=== PATIENT | female | born 1985 | race American Indian/Alaskan Native ===

== ENCOUNTER 2022-01-05 12:53 | Inpatient (IN) | payer SELFPAY ==
[2022-01-05] MEDS ORDERED: HALOPERIDOL LACTATE 5 MG/1 ML INJ IM PRN (13:34)
[2022-01-05] MEDS ORDERED: LORazepam 2 MG/ML VIAL IM PRN (13:34)
[2022-01-05] MEDS ORDERED: diphenhydrAMINE 50 MG/ML VIAL IM STA (13:53)
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
[2022-01-05 14:29] LABS: Hematocrit 39.1 % (30.3-42.9); Hemoglobin 12.7 gm/dl (10.1-14.3); Mean Corpuscular HGB Conc 33 % (30-34); Mean Corpuscular Volume 87 fl (79-97); Platelet Count 227 K/mm3 (140-440); Red Blood Count 4.48 M/mm3 (3.65-5.03)
[2022-01-05] MEDS ORDERED: VANCOMYCIN/NS 1 GM/250 ML 1 GM/250 ML BAG IV ONE (14:37)
[2022-01-05] MEDS ORDERED: cefTRIAXone/NS 2 GM/100 ML 2 GM/100 ML BAG IV ONE (14:37)
[2022-01-05] MEDS ORDERED: dexAMETHasone 20 MG/5 ML VIAL IV ONE (14:37)
[2022-01-05 14:42] LABS: Alanine Aminotransferase 15 units/L (7-56); Albumin 5.1 g/dL (3.9-5); BUN/Creatinine Ratio 23; Blood Urea Nitrogen 21 mg/dL (7-17); Calcium 9.8 mg/dL (8.4-10.2); Hemolysis Index 10
[2022-01-05] MEDS ORDERED: SODIUM CHLORIDE 0.9% 1000 ML 3,000 ML IV ONE (14:43)
[2022-01-05 14:48] LABS: INR 0.99 (0.87-1.13)
--- NOTE | 2022-01-05 14:54 | XRay Report ---
XR chest 1V ap INDICATION / CLINICAL INFORMATION: Acute psychosis and tachycarida, med clearance COMPARISON: None available. FINDINGS: SUPPORT DEVICES: None. HEART / MEDIASTINUM: No significant abnormality. LUNGS / PLEURA: Lungs are clear. Costophrenic sulci are sharp. No pneumothorax. ADDITIONAL FINDINGS: No significant additional findings. IMPRESSION: 1. No acute findings. Signer Name: Georges Alvarenga MD Signed: 01/05/2022 2:50 PM Workstation Name: [id number]
[2022-01-05] MEDS ORDERED: ACYCLOVIR 800 MG in SODIUM CHLORIDE 0.9% 100 ML IV ONE (15:00)
[2022-01-05] MEDS ORDERED: POTASSIUM IODIDE/IODINE (LUGOLS) 5% ORAL LIQD 5 ML PO STA ×2 (15:28→15:43)
[2022-01-05] MEDS ORDERED: ACETAMINOPHEN 500 MG TAB PO ONE (15:31)
[2022-01-05] MEDS ORDERED: PROPRANOLOL 40 MG TAB PO STA (15:34)
[2022-01-05] MEDS ORDERED: methIMAzole 5 MG TAB PO STA (15:34)
[2022-01-05] MEDS ORDERED: LIDOCAINE (1%) 10 MG/1 ML VIAL 20 ML MDV INFILTRATI ONE (15:42)
[2022-01-05 15:59] LABS: Basophils % (Auto) 0.2 % (0.0-1.8); Lymphocytes # (Auto) 1.2 K/mm3 (1.2-5.4); Lymphocytes % (Auto) 11.2 % (13.4-35.0); Monocytes % (Auto) 9.1 % (0.0-7.3)
--- NOTE | 2022-01-05 16:02 | Cat Scan Report ---
NONENHANCED CT SCAN OF THE HEAD: INDICATION / CLINICAL INFORMATION: 36 years Female; Medical Clearance Psych. TECHNIQUE: Routine CT head without contrast. All CT scans at this location are performed using CT dos e reduction for ALARA by means of automated exposure control. COMPARISON: None. FINDINGS: BRAIN / INTRACRANIAL CONTENTS: No acute hemorrhage, mass effect, midline shift, hydrocephalus, or acu te, large territorial infarct. No chronic infarct or focal atrophy. Normal brain volume and ventricul ar/sulcal size for age. No significant white matter abnormality. CRANIOCERVICAL JUNCTION: No significant abnormality. ORBITS: No significant abnormality of visualized orbits. SINUSES / MASTOIDS: No significant abnormality of the visualized paranasal sinuses or mastoid air geovani ls. ADDITIONAL FINDINGS: None. IMPRESSION: Normal CT scan of the brain Signer Name: Emilie Peres MD Signed: 01/05/2022 3:57 PM Workstation Name: [id number]
--- NOTE | 2022-01-05 16:03 | Cat Scan Report ---
CT abdomen pelvis wo con INDICATION: acute febrile illness ams. COMPARISON: None TECHNIQUE: Abdominal and pelvic CT exam performed. All CT scans at this location are performed using CT dose reduction for ALARA by means of automated exposure control. FINDINGS: CT ABDOMEN and PELVIS: Lung Bases: No significant abnormality. Liver: No significant abnormality. Biliary: No significant abnormality. Spleen: No significant abnormality. Pancreas: No significant abnormality. Adrenals: No significant abnormality. Kidneys: No significant abnormality. Lymphatics: No lymphadenopathy. Vasculature: No significant abnormality. Bowel: No significant abnormality. Normal appendix. Pelvis: No significant abnormality. Osseous Structures: No aggressive osseous lesion. Additional Findings: None IMPRESSION: 1. No significant abnormality of the abdomen or pelvis. Signer Name: Georges Alvarenga MD Signed: 01/05/2022 3:58 PM Workstation Name: [id number]
[2022-01-05 16:49] LABS: Basophils % (Manual) 0 % (0.0-1.8); Eosinophils % (Manual) 0 % (0.0-4.3); Total Cells Counted 100
[2022-01-05 16:51] LABS: Platelet Estimate Consistent w Auto
[2022-01-05] MEDS ORDERED: MIDAZOLAM 5 MG/5 ML INJ MDV IV NR (17:00)
[2022-01-05 17:10] LABS: Glucose,CSF 73 mg/dL
[2022-01-05] MEDS ORDERED: ALBUTEROL 2.5 MG/3 ML NEBU IH PRN (17:30)
[2022-01-05] MEDS ORDERED: ONDANSETRON 4 MG/2 ML INJ IV PRN (17:30)
[2022-01-05] MEDS ORDERED: oxyCODONE /ACETAMINOPHEN 5-325MG TAB PO PRN (17:30)
[2022-01-05] MEDS ORDERED: ACETAMINOPHEN 325 MG TAB PO PRN (17:30)
[2022-01-05] MEDS ORDERED: HYDROmorphone 1 MG/1 ML INJ IV PRN (17:30)
--- NOTE | 2022-01-05 17:30 | History and Physical Report ---
History of Present Illness Chief complaint: She has not been acting right for a long time History of present illness: 36 YO Female with GERD, MARLINE presents to ED for evaluation. Patient has diminished cognition and is unable to provide history time my evaluation. Patient history taken from EMS staff, ED staff, as well as the patient's parents were made available by telephone for interview. Patient family reports that the patient has experienced abnormal behavior over the past several years with an acute worsening of the aforementioned symptoms over the past 3 to 4 days. Patient has an inability to maintain employment, inability to form lasting relationships with others, tangential thinking, bizarre behavior. Patient family reports that over the past 3 days after being notified that she would no longer be financially supported she has experienced an acute exacerbation of the aforementioned symptoms. 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 Patient was being transported in the family vehicle when she began behaving erratically and trying to jump out of a car while he was in motion. Patient transported to [facility] via private vehicle for further care and evaluation of the aforementioned symptoms. The patient was seen and evaluated in the emergency department. All lab and imaging studies reviewed. Patient found to have an acute psychotic break suspected secondary to schizophrenia, rhabdomyolysis. Patient admitted to medical floor and initiated on IV fluid resuscitation therapy. Mental health team consulted. [address] No prior admission for review. No medication listed at time of admission for reconciliation. Advanced care planning conducted in ED. Past History Past Medical History: other (See HPI) Past Surgical History: No surgical history, Other (Reviewed) Social history: single. denies: smoking, alcohol abuse, prescription drug abuse Family history: hypertension Medications and Allergies Allergies Allergy/AdvReac Type Severity Reaction Status Date / Time Penicillins Allergy Unknown Verified 01/05/22 12:55 Home Medications Medication Instructions Recorded Confirmed Last Taken Type No Known Home Medications [No 01/05/22 01/05/22 Unknown History Reported Home Medications] Active Meds: Active Medications Haloperidol Lactate (Haloperidol Lactate 5 Mg/1 Ml Inj) 5 mg IM Q6HR PRN PRN Reason: Agitation Last Admin: 01/05/22 14:12 Dose: 5 mg Sodium Chloride (Nacl 0.9% 1000 Ml) 3,000 mls @ 999 mls/hr IV BOLUS ONE Stop: 01/05/22 17:43 Lorazepam (Lorazepam 2 Mg/Ml Vial) 2 mg IM Q4HR PRN PRN Reason: Agitation Last Admin: 01/05/22 14:11 Dose: 2 mg Midazolam HCl (Midazolam 5 Mg/5 Ml Inj Mdv) 5 mg IV ONCE NR Stop: 01/05/22 19:00 Review of Systems ROS unobtainable: due to mental status Exam - Constitutional Vitals: Temp Pulse Resp BP Pulse Ox 100.4 F H 152 H 18 125/77 99 01/05/22 14:41 01/05/22 12:55 01/05/22 12:55 01/05/22 12:55 01/05/22 16:48 General appearance: Present: mild distress - EENT Eyes: Present: PERRL ENT: hearing intact, clear oral mucosa - Neck Neck: Present: supple, normal ROM - Respiratory Respiratory effort: normal Respiratory: bilateral: CTA - Cardiovascular Heart Sounds: Present: S1 & S2. Absent: rub, click - Extremities Extremities: pulses symmetrical, No edema Peripheral Pulses: within normal limits - Abdominal General gastrointestinal: Present: soft, non-tender, non-distended, normal bowel sounds Female genitourinary: Present: normal - Integumentary Integumentary: Present: clear, warm, dry - Musculoskeletal Musculoskeletal: gait normal, strength equal bilaterally - Psychiatric Psychiatric: no appropriate mood/affect, no intact judgment & insight, no memory intact, agitated - Neurologic Neurologic: CNII-XII intact, moves all extremities Results - Labs CBC & Chem 7: 01/05/22 14:13 01/05/22 14:13 Labs: Abnormal lab results 01/05/22 01/05/22 01/05/22 Range/Units 14:13 14:13 14:13 Lymph % (Auto) 11.2 L (13.4-35.0) % Blanco % (Auto) 9.1 H (0.0-7.3) % Blanco # (Auto) 1.0 H (0.0-0.8) K/mm3 Seg Neutrophils % 79.5 H (40.0-70.0) % Seg Neuts % (Manual) 80.0 H (40.0-70.0) % Lymphocytes % (Manual) 11.0 L (13.4-35.0) % Monocytes % (Manual) 9.0 H (0.0-7.3) % Seg Neutrophils # 8.5 H (1.8-7.7) K/mm3 Seg Neutrophils # Man 8.4 H (1.8-7.7) K/mm3 Monocytes # (Manual) 0.9 H (0.0-0.8) K/mm3 Chloride 111.3 H (98-107) mmol/L Carbon Dioxide 19 L (22-30) mmol/L BUN 21 H (7-17) mg/dL Glucose 101 H (65-100) mg/dL Ammonia (25-60) umol/L Total Creatine Kinase 1911 H (30-135) units/L Total Protein 8.7 H (6.3-8.2) g/dL Albumin 5.1 H (3.9-5) g/dL Free T4 (0.76-1.46) ng/dL Salicylates < 0.3 L (2.8-20.0) mg/dL Acetaminophen (10.0-30.0) ug/mL 01/05/22 01/05/22 01/05/22 Range/Units 14:13 14:13 14:13 Lymph % (Auto) (13.4-35.0) % Blanco % (Auto) (0.0-7.3) % Blanco # (Auto) (0.0-0.8) K/mm3 Seg Neutrophils % (40.0-70.0) % Seg Neuts % (Manual) (40.0-70.0) % Lymphocytes % (Manual) (13.4-35.0) % Monocytes % (Manual) (0.0-7.3) % Seg Neutrophils # (1.8-7.7) K/mm3 Seg Neutrophils # Man (1.8-7.7) K/mm3 Monocytes # (Manual) (0.0-0.8) K/mm3 Chloride (98-107) mmol/L Carbon Dioxide (22-30) mmol/L BUN (7-17) mg/dL Glucose (65-100) mg/dL Ammonia 12.0 L (25-60) umol/L Total Creatine Kinase (30-135) units/L Total Protein (6.3-8.2) g/dL Albumin (3.9-5) g/dL Free T4 1.54 H (0.76-1.46) ng/dL Salicylates (2.8-20.0) mg/dL Acetaminophen 5.0 L (10.0-30.0) ug/mL Assessment and Plan - Patient Problems (1) Rhabdomyolysis Current Visit: Yes Status: Acute Qualifiers: Encounter type: initial encounter Plan to address problem: CK level, IV fluid resuscitation therapy, monitor urine output every shift, monitor fluid balance, repeat CK level in a.m. (2) Psychosis Current Visit: Yes Status: Acute Qualifiers: Psychosis type: schizophrenia Schizophrenia type: paranoid schizophrenia Qualified Code(s): F20.0 - Paranoid schizophrenia Plan to address problem: Mental health team consulted, [address], supportive care. (3) DVT prophylaxis Current Visit: Yes Status: Acute Plan to address problem: SCD to bilateral lower extremities while in bed (4) Advance care planning Current Visit: Yes Status: Acute Plan to address problem: Disease education done, care plan discussed, diagnoses discussed, prognosis discussed, patient is full code. Patient family made aware of patient suspected diagnoses. Patient family informed that patient will require psychiatric therap y. Patient's father: Mr. Jesus Garcia; [phone], Patient's mother; Ms. Rani Garcia; [phone]. Patient family acknowledges understanding and agreement with care plan, +30 minutes
[2022-01-05 17:46] LABS: Amphetamine Screen,Urine Negative; Cannabinoid Screen,Urine Negative; Cocaine Screen,Urine Negative; Methadone Screen,Urine Negative; Opiate Screen,Urine Negative
[2022-01-05 17:52] LABS: Bilirubin,Urine NEG (Negative); Blood,Urine NEG (Negative); Color,Urine Yellow (Yellow); Mucus,Urine 2+ /HPF
[2022-01-05 18:17] LABS: Benzodiazepines Screen,Urine Positive
[2022-01-05 18:50] LABS: Appearance,CSF Clear
[2022-01-05 19:02] LABS: White Blood Cell,CSF 0 /mm3 (1-10)
[2022-01-05 19:27] LABS: Red Blood Cell,CSF 1750000 /mm3 (0-0)
[2022-01-05 19:47] LABS: Basophils CSF 0 %
[2022-01-05] MEDS: SODIUM CHLORIDE 0.9% 1000 ML 1,000 ML IV SCH (23:39)
[2022-01-05] MEDS ORDERED: HALOPERIDOL LACTATE 5 MG/1 ML INJ IM ONE (23:48)
[2022-01-06] MEDS: SODIUM CHLORIDE 0.9% 1000 ML 1,000 ML IV SCH ×2 (07:53→15:39)
--- NOTE | 2022-01-06 08:54 | Progress Note ---
Assessment and Plan Assessment and plan: Mild rhabdomyolysis. Acute psychosis 01/06/2022. As reported in the admission record, patient family reports that the patient has experienced abnormal behavior over the past several years with an acute worsening of the aforementioned symptoms over the past 3 to 4 days. Patient has an inability to maintain employment, inability to form lasting relationships with others, tangential thinking, bizarre behavior. Patient family reports that over the past 3 days after being notified that she would no longer be financially supported she has experienced an acute exacerbation of the aforementioned symptoms. 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 Patient was being transported in the family vehicle when she began behaving erratically and trying to jump out of a car while he was in motion. Await psychiatry evaluation. Continue IV fluid hydration for rhabdomyolysis. Follow-up CK level in a.m. History Interval history: No new issues overnight. Hospitalist Physical - Constitutional Vitals: Temp Pulse Resp BP Pulse Ox 98.1 F 101 H 18 117/63 97 01/06/22 07:11 01/06/22 07:11 01/06/22 07:11 01/06/22 07:11 01/06/22 08:25 General appearance: Present: no acute distress - EENT Eyes: Present: PERRL, EOM intact ENT: hearing intact, clear oral mucosa, dentition normal - Neck Neck: Present: supple, normal ROM - Respiratory Respiratory effort: normal Respiratory: bilateral: CTA - Cardiovascular Rhythm: regular Heart Sounds: Present: S1 & S2. Absent: gallop, rub - Extremities Extremities: no ischemia, No edema, Full ROM - Abdominal General gastrointestinal: soft, non-tender, non-distended, normal bowel sounds - Integumentary Integumentary: Present: clear, warm, dry - Neurologic Neurologic: CNII-XII intact, moves all extremities Results - Labs CBC & Chem 7: 01/05/22 14:13 01/05/22 14:13 Labs: Laboratory Last Values WBC 10.5 K/mm3 (4.5-11.0) 01/05/22 14:13 RBC 4.48 M/mm3 (3.65-5.03) 01/05/22 14:13 Hgb 12.7 gm/dl (10.1-14.3) 01/05/22 14:13 Hct 39.1 % (30.3-42.9) 01/05/22 14:13 MCV 87 fl (79-97) 01/05/22 14:13 MCH 28 pg (28-32) 01/05/22 14:13 MCHC 33 % (30-34) 01/05/22 14:13 RDW 15.0 % (13.2-15.2) 01/05/22 14:13 Plt Count 227 K/mm3 (140-440) 01/05/22 14:13 Lymph % (Auto) 11.2 % (13.4-35.0) L 01/05/22 14:13 Cowley % (Auto) 9.1 % (0.0-7.3) H 01/05/22 14:13 Eos % (Auto) 0.0 % (0.0-4.3) 01/05/22 14:13 Baso % (Auto) 0.2 % (0.0-1.8) 01/05/22 14:13 Lymph # (Auto) 1.2 K/mm3 (1.2-5.4) 01/05/22 14:13 Cowley # (Auto) 1.0 K/mm3 (0.0-0.8) H 01/05/22 14:13 Eos # (Auto) 0.0 K/mm3 (0.0-0.4) 01/05/22 14:13 Baso # (Auto) 0.0 K/mm3 (0.0-0.1) 01/05/22 14:13 Add Manual Diff Complete 01/05/22 14:13 Total Counted 100 01/05/22 14:13 Seg Neutrophils % 79.5 % (40.0-70.0) H 01/05/22 14:13 Seg Neuts % (Manual) 80.0 % (40.0-70.0) H 01/05/22 14:13 Band Neutrophils % 0 % 01/05/22 14:13 Lymphocytes % (Manual) 11.0 % (13.4-35.0) L 01/05/22 14:13 Reactive Lymphs % (Man) 0 % 01/05/22 14:13 Monocytes % (Manual) 9.0 % (0.0-7.3) H 01/05/22 14:13 Eosinophils % (Manual) 0 % (0.0-4.3) 01/05/22 14:13 Basophils % (Manual) 0 % (0.0-1.8) 01/05/22 14:13 Metamyelocytes % 0 % 01/05/22 14:13 Myelocytes % 0 % 01/05/22 14:13 Promyelocytes % 0 % 01/05/22 14:13 Blast Cells % 0 % 01/05/22 14:13 Nucleated RBC % Not Reportable 01/05/22 14:13 Seg Neutrophils # 8.5 K/mm3 (1.8-7.7) H 01/05/22 14:13 Seg Neutrophils # Man 8.4 K/mm3 (1.8-7.7) H 01/05/22 14:13 Band Neutrophils # 0.0 K/mm3 01/05/22 14:13 Lymphocytes # (Manual) 1.2 K/mm3 (1.2-5.4) 01/05/22 14:13 Abs React Lymphs (Man) 0.0 K/mm3 01/05/22 14:13 Monocytes # (Manual) 0.9 K/mm3 (0.0-0.8) H 01/05/22 14:13 Eosinophils # (Manual) 0.0 K/mm3 (0.0-0.4) 01/05/22 14:13 Basophils # (Manual) 0.0 K/mm3 (0.0-0.1) 01/05/22 14:13 Metamyelocytes # 0.0 K/mm3 01/05/22 14:13 Myelocytes # 0.0 K/mm3 01/05/22 14:13 Promyelocytes # 0.0 K/mm3 01/05/22 14:13 Blast Cells # 0.0 K/mm3 01/05/22 14:13 WBC Morphology Not Reportable 01/05/22 14:13 WBC Morphology TNR 01/05/22 14:13 Hypersegmented Neuts Not Reportable 01/05/22 14:13 Hyposegmented Neuts Not Reportable 01/05/22 14:13 Hypogranular Neuts Not Reportable 01/05/22 14:13 Smudge Cells Not Reportable 01/05/22 14:13 Toxic Granulation Not Reportable 01/05/22 14:13 Toxic Vacuolation Not Reportable 01/05/22 14:13 Dohle Bodies Not Reportable 01/05/22 14:13 Pelger-Huet Anomaly Not Reportable 01/05/22 14:13 Nely Rods Not Reportable 01/05/22 14:13 Platelet Estimate Consistent w auto 01/05/22 14:13 Clumped Platelets Not Reportable 01/05/22 14:13 Plt Clumps, EDTA Not Reportable 01/05/22 14:13 Large Platelets Not Reportable 01/05/22 14:13 Giant Platelets Not Reportable 01/05/22 14:13 Platelet Satelliting Not Reportable 01/05/22 14:13 Plt Morphology Comment Not Reportable 01/05/22 14:13 RBC Morphology Not Reportable 01/05/22 14:13 Dimorphic RBCs Not Reportable 01/05/22 14:13 Polychromasia Not Reportable 01/05/22 14:13 Hypochromasia Not Reportable 01/05/22 14:13 Poikilocytosis Not Reportable 01/05/22 14:13 Anisocytosis Not Reportable 01/05/22 14:13 Microcytosis Not Reportable 01/05/22 14:13 Macrocytosis Not Reportable 01/05/22 14:13 Spherocytes Not Reportable 01/05/22 14:13 Pappenheimer Bodies Not Reportable 01/05/22 14:13 Sickle Cells Not Reportable 01/05/22 14:13 Target Cells Not Reportable 01/05/22 14:13 Tear Drop Cells Not Reportable 01/05/22 14:13 Ovalocytes Not Reportable 01/05/22 14:13 Helmet Cells Not Reportable 01/05/22 14:13 [place] Bodies Not Reportable 01/05/22 14:13 [place] Rings Not Reportable 01/05/22 14:13 Nicolasa Cells Not Reportable 01/05/22 14:13 Bite Cells Not Reportable 01/05/22 14:13 Crenated Cell Not Reportable 01/05/22 14:13 Elliptocytes Few 01/05/22 14:13 Acanthocytes (Spur) Not Reportable 01/05/22 14:13 Rouleaux Not Reportable 01/05/22 14:13 Hemoglobin C Crystals Not Reportable 01/05/22 14:13 Schistocytes Not Reportable 01/05/22 14:13 Malaria parasites Not Reportable 01/05/22 14:13 Austen Bodies Not Reportable 01/05/22 14:13 Hem Pathologist Commnt No 01/05/22 14:13 PT 14.2 Sec. (12.2-14.9) 01/05/22 14:13 INR 0.99 (0.87-1.13) 01/05/22 14:13 APTT 29.0 Sec. (24.2-36.6) 01/05/22 14:13 Sodium 143 mmol/L (137-145) 01/05/22 14:13 Potassium 4.2 mmol/L (3.6-5.0) 01/05/22 14:13 Chloride 111.3 mmol/L (98-107) H 01/05/22 14:13 Carbon Dioxide 19 mmol/L (22-30) L 01/05/22 14:13 Anion Gap 17 mmol/L 01/05/22 14:13 BUN 21 mg/dL (7-17) H 01/05/22 14:13 Creatinine 0.9 mg/dL (0.6-1.2) 01/05/22 14:13 Estimated GFR > 60 ml/min 01/05/22 14:13 BUN/Creatinine Ratio 23 % 01/05/22 14:13 Glucose 101 mg/dL (65-100) H 01/05/22 14:13 Lactic Acid 1.00 mmol/L (0.7-2.0) 01/05/22 15:14 Calcium 9.8 mg/dL (8.4-10.2) 01/05/22 14:13 Magnesium 2.20 mg/dL (1.7-2.3) 01/05/22 14:13 Total Bilirubin 1.00 mg/dL (0.1-1.2) 01/05/22 14:13 AST 33 units/L (5-40) 01/05/22 14:13 ALT 15 units/L (7-56) 01/05/22 14:13 Alkaline Phosphatase 49 units/L (35-129) 01/05/22 14:13 Ammonia 12.0 umol/L (25-60) L 01/05/22 14:13 Total Creatine Kinase 1911 units/L (30-135) H 01/05/22 14:13 Total Protein 8.7 g/dL (6.3-8.2) H 01/05/22 14:13 Albumin 5.1 g/dL (3.9-5) H 01/05/22 14:13 Albumin/Globulin Ratio 1.4 % 01/05/22 14:13 TSH 1.310 mlU/mL (0.270-4.200) 01/05/22 14:13 Free T4 1.54 ng/dL (0.76-1.46) H 01/05/22 14:13 HCG, Qual Negative (Negative) 01/05/22 14:13 Urine Color Yellow (Yellow) 01/05/22 Unknown Urine Turbidity Clear (Clear) 01/05/22 Unknown Urine pH 5.0 (5.0-7.0) 01/05/22 Unknown Ur Specific [place] 1.027 (1.003-1.030) 01/05/22 Unknown Urine Protein 100 mg/dl mg/dL (Negative) 01/05/22 Unknown Urine Glucose (UA) Neg mg/dL (Negative) 01/05/22 Unknown Urine Ketones 80 mg/dL (Negative) 01/05/22 Unknown Urine Blood Neg (Negative) 01/05/22 Unknown Urine Nitrite Neg (Negative) 01/05/22 Unknown Urine Bilirubin Neg (Negative) 01/05/22 Unknown Urine Urobilinogen 2.0 mg/dL (<2.0) 01/05/22 Unknown Ur Leukocyte Esterase Neg (Negative) 01/05/22 Unknown Urine WBC (Auto) 1.0 /HPF (0.0-6.0) 01/05/22 Unknown Urine RBC (Auto) 8.0 /HPF (0.0-6.0) 01/05/22 Unknown U Epithel Cells (Auto) 13.0 /HPF (0-13.0) 01/05/22 Unknown Urine Mucus 2+ /HPF 01/05/22 Unknown CSF Appearance Clear 01/05/22 Unknown CSF Color Colorless 01/05/22 Unknown CSF WBC 0 /mm3 (1-10) 01/05/22 Unknown CSF RBC 2385744 /mm3 (0-0) 01/05/22 Unknown CSF Seg Neutrophils 0 % (0-6) 01/05/22 Unknown CSF Lymphocytes % 0 % (40-80) 01/05/22 Unknown CSF Reactive Lymphs 0 % 01/05/22 Unknown CSF Monocytes % 0 % (15-45) 01/05/22 Unknown CSF Eosinophils % 0 % 01/05/22 Unknown CSF Basophils 0 % 01/05/22 Unknown CSF Comment No cells seen 01/05/22 Unknown CSF Glucose 73 mg/dL 01/05/22 Unknown CSF Total Protein 32 mg/dL 01/05/22 Unknown Salicylates < 0.3 mg/dL (2.8-20.0) L 01/05/22 14:13 Urine Opiates Screen Negative 01/05/22 Unknown Urine Methadone Screen Negative 01/05/22 Unknown Acetaminophen 5.0 ug/mL (10.0-30.0) L 01/05/22 14:13 Ur Barbiturates Screen Negative 01/05/22 Unknown Ur Phencyclidine Scrn Negative 01/05/22 Unknown Ur Amphetamines Screen Negative 01/05/22 Unknown U Benzodiazepines Scrn Positive 01/05/22 Unknown Urine Cocaine Screen Negative 01/05/22 Unknown U Marijuana (THC) Screen Negative 01/05/22 Unknown Drugs of Abuse Note Disclamer 01/05/22 Unknown Plasma/Serum Alcohol < 0.01 % (0-0.07) 01/05/22 14:13 Microbiology: Microbiology 01/05/22 15:40 Peripheral/Venous Blood Culture - Preliminary Culture in Progress 01/05/22 15:14 Peripheral/Venous Blood Culture - Preliminary Culture in Progress 01/05/22 Unknown Cerebral Spinal Fluid CSF Culture - Preliminary 01/05/22 Unknown Cerebral Spinal Fluid Cryptococcal Antigen - Final Sorensen/IV: Voiding Method Toilet Active Medications - Current Medications Current Medications: Generic Name Dose Route Start Last Admin Trade Name Freq PRN Reason Stop Dose Admin Acetaminophen 650 mg 01/05/22 17:30 Acetaminophen 325 Mg Tab PO Q4H PRN Pain MILD(1-3)/Fever >100.5/RAVI Albuterol 2.5 mg 01/05/22 17:30 Albuterol 2.5 Mg/3 Ml Nebu IH Q4HRT PRN Shortness Of Breath Haloperidol Lactate 5 mg 01/05/22 13:34 01/05/22 14:12 Haloperidol Lactate 5 Mg/1 Ml Inj IM 5 mg Q6HR PRN Administration Agitation Hydromorphone HCl 0.5 mg 01/05/22 17:30 Hydromorphone 1 Mg/1 Ml Inj IV Q23H PRN Pain , Severe (7-10) Sodium Chloride 1,000 mls @ 150 mls/hr 01/05/22 17:30 01/06/22 07:53 Nacl 0.9% 1000 Ml IV 150 mls/hr DIRECT GERARD Administration Lorazepam 2 mg 01/05/22 13:34 01/05/22 14:11 Lorazepam 2 Mg/Ml Vial IM 2 mg Q4HR PRN Administration Agitation Ondansetron HCl 4 mg 01/05/22 17:30 Ondansetron 4 Mg/2 Ml Inj IV Q8H PRN Nausea And Vomiting Oxycodone/Acetaminophen 1 tab 01/05/22 17:30 Oxycodone /Acetaminophen 5-325mg Tab PO Q16H PRN Pain, Moderate (4-6) Sodium Chloride 10 ml 01/05/22 22:00 01/05/22 23:40 Sodium Chloride 0.9% 10 Ml Flush Syringe IV 10 ml BID GERARD Administration Sodium Chloride 10 ml 01/05/22 17:30 Sodium Chloride 0.9% 10 Ml Flush Syringe IV PRN PRN LINE FLUSH
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
[2022-01-06] MEDS ORDERED: HALOPERIDOL 5 MG TAB PO SCH (16:00)
[2022-01-06] MEDS: HALOPERIDOL LACTATE 5 MG/1 ML INJ IM SCH ×2 (17:48→22:57)
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
[2022-01-07] MEDS: SODIUM CHLORIDE 0.9% 1000 ML 1,000 ML IV SCH (01:41)
[2022-01-07 06:18] LABS: Basophils % (Auto) 0.2 % (0.0-1.8); Eosinophils % (Auto) 0.3 % (0.0-4.3); Hematocrit 32.1 % (30.3-42.9); Hemoglobin 10.2 gm/dl (10.1-14.3); Lymphocytes # (Auto) 1.3 K/mm3 (1.2-5.4); Mean Corpuscular HGB Conc 32 % (30-34); Mean Corpuscular Volume 89 fl (79-97); Monocytes # (Auto) 0.5 K/mm3 (0.0-0.8); Monocytes % (Auto) 9.4 % (0.0-7.3); Platelet Count 149 K/mm3 (140-440); Red Cell Distribution Width 15.1 % (13.2-15.2)
[2022-01-07 06:39] LABS: BUN/Creatinine Ratio 13; Blood Urea Nitrogen 16 mg/dL (7-17); Calcium 7.7 mg/dL (8.4-10.2); Hemolysis Index 1
[2022-01-07] MEDS ORDERED: POTASSIUM CHLORIDE ER 20 MEQ TAB PO NR (08:30)
--- NOTE | 2022-01-07 14:20 | Event Note ---
Date: 01/07/22 no acute distress no cardiopulmonary issues .... will sign off
[2022-01-07] MEDS: HALOPERIDOL LACTATE 5 MG/1 ML INJ IM SCH ×2 (15:23→22:20)
--- NOTE | 2022-01-08 05:02 | Progress Note ---
Assessment and Plan Assessment and plan: 36 YO Female with GERD, MARLINE presents to ED for evaluation. Patient has diminished cognition and is unable to provide history time my evaluation. Patient history taken from EMS staff, ED staff, as well as the patient's parents were made available by telephone for interview. Patient family reports that the patient has experienced abnormal behavior over the past several years with an acute worsening of the aforementioned symptoms over the past 3 to 4 days. Patient has an inability to maintain employment, inability to form lasting relationships with others, tangential thinking, bizarre behavior. Patient family reports that over the past 3 days after being notified that she would no longer be financially supported she has experienced an acute exacerbation of the aforementioned symptoms. 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 Patient was being transported in the family vehicle when she began behaving erratically and trying to jump out of a car while he was in motion. Patient found to have an acute psychotic break suspected secondary to schizophrenia, rhabdomyolysis. Patient admitted to medical floor and initiated on IV fluid resuscitation therapy. Mental health team consulted. [address] Mild rhabdomyolysis. Borderline hyperkalemia, 3.4 Borderline free T4 1.5 versus normal 1.4 with a normal TSH Acute psychosis with history of schizophrenia: Psychiatry consulted, evaluation in progress, medical treatment initiated and awaiting transfer daily psych facility for further management. She denies having mental health problems. She is refusing to take her medications stating that she gets sick and vomits if she takes her meds. She is currently calm. She remains under 1013.She states that she feels not safe to return to her parents home. She is medically stable for consult to psych facility. Discussed with the nursing staff. History Interval history: Patient is alert and oriented. She is calm. She is ambulating. She denies hallucinations. She denies having psych problems or history. She is refusing to take her medicines stating that she will get sick and vomit with the medications. Has no complaints. She states that she feels not safe to return to her parents home. Psychiatry is following and awaiting transfer to a psych facility. Hospitalist Physical - Constitutional Vitals: Temp Pulse Resp BP Pulse Ox 98.1 F 92 H 18 123/77 98 01/07/22 12:19 01/07/22 12:19 01/07/22 12:19 01/07/22 12:19 01/07/22 22:00 General appearance: Present: no acute distress - EENT Eyes: Present: PERRL, EOM intact ENT: hearing intact, clear oral mucosa - Neck Neck: Present: supple - Respiratory Respiratory effort: normal Respiratory: bilateral: CTA - Cardiovascular Rhythm: regular - Extremities Extremities: No edema - Abdominal General gastrointestinal: soft, non-tender, non-distended - Integumentary Integumentary: Absent: rash - Psychiatric Psychiatric: no intact judgment & insight, cooperative, no agitated - Neurologic Neurologic: no focal deficits, moves all extremities Results - Labs CBC & Chem 7: 01/07/22 05:42 01/07/22 05:42 Labs: Laboratory Last Values WBC 5.6 K/mm3 (4.5-11.0) 01/07/22 05:42 RBC 3.60 M/mm3 (3.65-5.03) L 01/07/22 05:42 Hgb 10.2 gm/dl (10.1-14.3) 01/07/22 05:42 Hct 32.1 % (30.3-42.9) D 01/07/22 05:42 MCV 89 fl (79-97) 01/07/22 05:42 MCH 28 pg (28-32) 01/07/22 05:42 MCHC 32 % (30-34) 01/07/22 05:42 RDW 15.1 % (13.2-15.2) 01/07/22 05:42 Plt Count 149 K/mm3 (140-440) 01/07/22 05:42 Lymph % (Auto) 23.0 % (13.4-35.0) 01/07/22 05:42 Coal % (Auto) 9.4 % (0.0-7.3) H 01/07/22 05:42 Eos % (Auto) 0.3 % (0.0-4.3) 01/07/22 05:42 Baso % (Auto) 0.2 % (0.0-1.8) 01/07/22 05:42 Lymph # (Auto) 1.3 K/mm3 (1.2-5.4) 01/07/22 05:42 Coal # (Auto) 0.5 K/mm3 (0.0-0.8) 01/07/22 05:42 Eos # (Auto) 0.0 K/mm3 (0.0-0.4) 01/07/22 05:42 Baso # (Auto) 0.0 K/mm3 (0.0-0.1) 01/07/22 05:42 Add Manual Diff Complete 01/05/22 14:13 Total Counted 100 01/05/22 14:13 Seg Neutrophils % 67.1 % (40.0-70.0) 01/07/22 05:42 Seg Neuts % (Manual) 80.0 % (40.0-70.0) H 01/05/22 14:13 Band Neutrophils % 0 % 01/05/22 14:13 Lymphocytes % (Manual) 11.0 % (13.4-35.0) L 01/05/22 14:13 Reactive Lymphs % (Man) 0 % 01/05/22 14:13 Monocytes % (Manual) 9.0 % (0.0-7.3) H 01/05/22 14:13 Eosinophils % (Manual) 0 % (0.0-4.3) 01/05/22 14:13 Basophils % (Manual) 0 % (0.0-1.8) 01/05/22 14:13 Metamyelocytes % 0 % 01/05/22 14:13 Myelocytes % 0 % 01/05/22 14:13 Promyelocytes % 0 % 01/05/22 14:13 Blast Cells % 0 % 01/05/22 14:13 Nucleated RBC % Not Reportable 01/05/22 14:13 Seg Neutrophils # 3.7 K/mm3 (1.8-7.7) 01/07/22 05:42 Seg Neutrophils # Man 8.4 K/mm3 (1.8-7.7) H 01/05/22 14:13 Band Neutrophils # 0.0 K/mm3 01/05/22 14:13 Lymphocytes # (Manual) 1.2 K/mm3 (1.2-5.4) 01/05/22 14:13 Abs React Lymphs (Man) 0.0 K/mm3 01/05/22 14:13 Monocytes # (Manual) 0.9 K/mm3 (0.0-0.8) H 01/05/22 14:13 Eosinophils # (Manual) 0.0 K/mm3 (0.0-0.4) 01/05/22 14:13 Basophils # (Manual) 0.0 K/mm3 (0.0-0.1) 01/05/22 14:13 Metamyelocytes # 0.0 K/mm3 01/05/22 14:13 Myelocytes # 0.0 K/mm3 01/05/22 14:13 Promyelocytes # 0.0 K/mm3 01/05/22 14:13 Blast Cells # 0.0 K/mm3 01/05/22 14:13 WBC Morphology Not Reportable 01/05/22 14:13 WBC Morphology TNR 01/05/22 14:13 Hypersegmented Neuts Not Reportable 01/05/22 14:13 Hyposegmented Neuts Not Reportable 01/05/22 14:13 Hypogranular Neuts Not Reportable 01/05/22 14:13 Smudge Cells Not Reportable 01/05/22 14:13 Toxic Granulation Not Reportable 01/05/22 14:13 Toxic Vacuolation Not Reportable 01/05/22 14:13 Dohle Bodies Not Reportable 01/05/22 14:13 Pelger-Huet Anomaly Not Reportable 01/05/22 14:13 Nely Rods Not Reportable 01/05/22 14:13 Platelet Estimate Consistent w auto 01/05/22 14:13 Clumped Platelets Not Reportable 01/05/22 14:13 Plt Clumps, EDTA Not Reportable 01/05/22 14:13 Large Platelets Not Reportable 01/05/22 14:13 Giant Platelets Not Reportable 01/05/22 14:13 Platelet Satelliting Not Reportable 01/05/22 14:13 Plt Morphology Comment Not Reportable 01/05/22 14:13 RBC Morphology Not Reportable 01/05/22 14:13 Dimorphic RBCs Not Reportable 01/05/22 14:13 Polychromasia Not Reportable 01/05/22 14:13 Hypochromasia Not Reportable 01/05/22 14:13 Poikilocytosis Not Reportable 01/05/22 14:13 Anisocytosis Not Reportable 01/05/22 14:13 Microcytosis Not Reportable 01/05/22 14:13 Macrocytosis Not Reportable 01/05/22 14:13 Spherocytes Not Reportable 01/05/22 14:13 Pappenheimer Bodies Not Reportable 01/05/22 14:13 Sickle Cells Not Reportable 01/05/22 14:13 Target Cells Not Reportable 01/05/22 14:13 Tear Drop Cells Not Reportable 01/05/22 14:13 Ovalocytes Not Reportable 01/05/22 14:13 Helmet Cells Not Reportable 01/05/22 14:13 [place] Bodies Not Reportable 01/05/22 14:13 [place] Rings Not Reportable 01/05/22 14:13 [place] Cells Not Reportable 01/05/22 14:13 Bite Cells Not Reportable 01/05/22 14:13 Crenated Cell Not Reportable 01/05/22 14:13 Elliptocytes Few 01/05/22 14:13 Acanthocytes (Spur) Not Reportable 01/05/22 14:13 Rouleaux Not Reportable 01/05/22 14:13 Hemoglobin C Crystals Not Reportable 01/05/22 14:13 Schistocytes Not Reportable 01/05/22 14:13 Malaria parasites Not Reportable 01/05/22 14:13 [place] Bodies Not Reportable 01/05/22 14:13 Hem Pathologist Commnt No 01/05/22 14:13 PT 14.2 Sec. (12.2-14.9) 01/05/22 14:13 INR 0.99 (0.87-1.13) 01/05/22 14:13 APTT 29.0 Sec. (24.2-36.6) 01/05/22 14:13 Sodium 146 mmol/L (137-145) H 01/07/22 05:42 Potassium 3.4 mmol/L (3.6-5.0) L 01/07/22 05:42 Chloride 115.5 mmol/L (98-107) H 01/07/22 05:42 Carbon Dioxide 19 mmol/L (22-30) L 01/07/22 05:42 Anion Gap 15 mmol/L 01/07/22 05:42 BUN 16 mg/dL (7-17) 01/07/22 05:42 Creatinine 1.2 mg/dL (0.6-1.2) 01/07/22 05:42 Estimated GFR > 60 ml/min 01/07/22 05:42 BUN/Creatinine Ratio 13 % 01/07/22 05:42 Glucose 103 mg/dL (65-100) H 01/07/22 05:42 Lactic Acid 1.00 mmol/L (0.7-2.0) 01/05/22 15:14 Calcium 7.7 mg/dL (8.4-10.2) L D 01/07/22 05:42 Magnesium 2.20 mg/dL (1.7-2.3) 01/05/22 14:13 Total Bilirubin 1.00 mg/dL (0.1-1.2) 01/05/22 14:13 AST 33 units/L (5-40) 01/05/22 14:13 ALT 15 units/L (7-56) 01/05/22 14:13 Alkaline Phosphatase 49 units/L (35-129) 01/05/22 14:13 Ammonia 12.0 umol/L (25-60) L 01/05/22 14:13 Total Creatine Kinase 1264 units/L (30-135) H 01/07/22 05:42 Total Protein 8.7 g/dL (6.3-8.2) H 01/05/22 14:13 Albumin 5.1 g/dL (3.9-5) H 01/05/22 14:13 Albumin/Globulin Ratio 1.4 % 01/05/22 14:13 TSH 1.310 mlU/mL (0.270-4.200) 01/05/22 14:13 Free T4 1.54 ng/dL (0.76-1.46) H 01/05/22 14:13 HCG, Qual Negative (Negative) 01/05/22 14:13 Urine Color Yellow (Yellow) 01/05/22 Unknown Urine Turbidity Clear (Clear) 01/05/22 Unknown Urine pH 5.0 (5.0-7.0) 01/05/22 Unknown Ur Specific [place] 1.027 (1.003-1.030) 01/05/22 Unknown Urine Protein 100 mg/dl mg/dL (Negative) 01/05/22 Unknown Urine Glucose (UA) Neg mg/dL (Negative) 01/05/22 Unknown Urine Ketones 80 mg/dL (Negative) 01/05/22 Unknown Urine Blood Neg (Negative) 01/05/22 Unknown Urine Nitrite Neg (Negative) 01/05/22 Unknown Urine Bilirubin Neg (Negative) 01/05/22 Unknown Urine Urobilinogen 2.0 mg/dL (<2.0) 01/05/22 Unknown Ur Leukocyte Esterase Neg (Negative) 01/05/22 Unknown Urine WBC (Auto) 1.0 /HPF (0.0-6.0) 01/05/22 Unknown Urine RBC (Auto) 8.0 /HPF (0.0-6.0) 01/05/22 Unknown U Epithel Cells (Auto) 13.0 /HPF (0-13.0) 01/05/22 Unknown Urine Mucus 2+ /HPF 01/05/22 Unknown CSF Appearance Clear 01/05/22 Unknown CSF Color Colorless 01/05/22 Unknown CSF WBC 0 /mm3 (1-10) 01/05/22 Unknown CSF RBC 3591439 /mm3 (0-0) 01/05/22 Unknown CSF Seg Neutrophils 0 % (0-6) 01/05/22 Unknown CSF Lymphocytes % 0 % (40-80) 01/05/22 Unknown CSF Reactive Lymphs 0 % 01/05/22 Unknown CSF Monocytes % 0 % (15-45) 01/05/22 Unknown CSF Eosinophils % 0 % 01/05/22 Unknown CSF Basophils 0 % 01/05/22 Unknown CSF Comment No cells seen 01/05/22 Unknown CSF Glucose 73 mg/dL 01/05/22 Unknown CSF Total Protein 32 mg/dL 01/05/22 Unknown Salicylates < 0.3 mg/dL (2.8-20.0) L 01/05/22 14:13 Urine Opiates Screen Negative 01/05/22 Unknown Urine Methadone Screen Negative 01/05/22 Unknown Acetaminophen 5.0 ug/mL (10.0-30.0) L 01/05/22 14:13 Ur Barbiturates Screen Negative 01/05/22 Unknown Ur Phencyclidine Scrn Negative 01/05/22 Unknown Ur Amphetamines Screen Negative 01/05/22 Unknown U Benzodiazepines Scrn Positive 01/05/22 Unknown Urine Cocaine Screen Negative 01/05/22 Unknown U Marijuana (THC) Screen Negative 01/05/22 Unknown Drugs of Abuse Note Disclamer 01/05/22 Unknown Plasma/Serum Alcohol < 0.01 % (0-0.07) 01/05/22 14:13 Microbiology: Microbiology 01/05/22 15:40 Peripheral/Venous Blood Culture - Preliminary NO GROWTH AFTER 48 HOURS 01/05/22 15:14 Peripheral/Venous Blood Culture - Preliminary NO GROWTH AFTER 48 HOURS 01/05/22 Unknown Cerebral Spinal Fluid CSF Culture - Preliminary 01/05/22 Unknown Cerebral Spinal Fluid Cryptococcal Antigen - Final [place]/IV: Voiding Method Toilet Active Medications - Current Medications Current Medications: Generic Name Dose Route Start Last Admin Trade Name Freq PRN Reason Stop Dose Admin Acetaminophen 650 mg 01/05/22 17:30 Acetaminophen 325 Mg Tab PO Q4H PRN Pain MILD(1-3)/Fever >100.5/RAVI Albuterol 2.5 mg 01/05/22 17:30 Albuterol 2.5 Mg/3 Ml Nebu IH Q4HRT PRN Shortness Of Breath Haloperidol Lactate 5 mg 01/05/22 13:34 01/05/22 14:12 Haloperidol Lactate 5 Mg/1 Ml Inj IM 5 mg Q6HR PRN Administration Agitation Haloperidol Lactate 5 mg 01/06/22 16:00 01/07/22 22:20 Haloperidol Lactate 5 Mg/1 Ml Inj IM Not Given BID GERARD Sodium Chloride 1,000 mls @ 150 mls/hr 01/05/22 17:30 01/07/22 01:41 Nacl 0.9% 1000 Ml IV 150 mls/hr DIRECT GERARD Administration Lorazepam 2 mg 01/05/22 13:34 01/05/22 14:11 Lorazepam 2 Mg/Ml Vial IM 2 mg Q4HR PRN Administration Agitation Ondansetron HCl 4 mg 01/05/22 17:30 Ondansetron 4 Mg/2 Ml Inj IV Q8H PRN Nausea And Vomiting Sodium Chloride 10 ml 01/05/22 22:00 01/07/22 22:21 Sodium Chloride 0.9% 10 Ml Flush Syringe IV Not Given BID GERARD Sodium Chloride 10 ml 01/05/22 17:30 Sodium Chloride 0.9% 10 Ml Flush Syringe IV PRN PRN LINE FLUSH Nutrition/Malnutrition Assess - Dietary Evaluation Nutrition/Malnutrition Findings: Nutrition Notes Start: 01/06/22 11:46 Freq: Status: Active Protocol: Document 01/06/22 11:46 JOSEPH (Rec: 01/06/22 12:11 JOSEPH [id number]) Nutrition Notes Need for Assessment generated from: travertine installer,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 Current Diet Regular Diet (since D 01/05). Labs/Tests 01/05: Cl 111.3, CO2 19, BUN 21, Glu 101. Pertinent Medications 01/06: Nutritionally unremarkable. Height 5 ft 7.5 in Weight 61 kg [place] Body Weight (kg) 62.50 BMI 20.7 Intake Prior to Admission Poor Weight change and time frame Pt states being unsure if loss body weight recently. Weight Status Appropriate Subjective/Other Information RD consult for risk of malnutrition assessment. Pt's PO intake of meals was Fair (50%), according to ADL notes. Pt shows no signs of concern for risk of malnitrition at the time, according to Physical Assessment History notes. Percent of energy/protein needs met: Prescribed Regular Diet provides for energy/protein needs (2,289 Kcal/89 g) during LOS. Burn Absent Trauma Absent GI Symptoms None Food Allergy No Skin Integrity/Comment Clear, warm dry. Current % PO Fair (50-74%) Minimum of two criteria No #1 Nutrition Diagnosis No nutrition diagnosis at this time Is patient on ventilator? No Is Patient Ambulatory and/or Out of Bed Yes REE-([facility]-ambulatory/OOB) [ [id number] [id number]] Calculation Used for Recommendations [facility] Additional Notes Protein: 0.8-1 g/Kg; 49-61 g/ day. Fluids: 1 ml/Kcal, or as per MD. Nutrition Intervention Change Diet Order: Continue Regular Diet. Goal #1 Maintain body weight within +/ -3% of admission body weight during LOS. Follow-Up By: 01/13/22 Additional Comments Continue monitoring food tolerance, %PO intake of meals , and BM.
[2022-01-08] MEDS: HALOPERIDOL LACTATE 5 MG/1 ML INJ IM SCH ×2 (09:32→21:29)
--- NOTE | 2022-01-08 15:36 | Progress Note ---
Subjective - Reason for Consult Consult date: 01/08/22 Reason for consult: Mental health evaluation - Chief Complaint Chief complaint: The patient was seen today. She reports doing well. The patient is noncompliant with psychotropic medications. She continues to be delusional thinking her parents are out to kill her. She denies any current suicidal/homicidal ideation and denies hallucinations. REVIEW OF SYSTEMS Constitutional: Negative for weight loss ENT: Negative for stridor Respiratory: Negative for cough or hemoptysis All other systems reviewed and are negative MENTAL STATUS EXAMINATION General Appearance and Behavior: Age appropriate, good hygiene, wearing appropriate clothes. calm, cooperative Cooperation: Cooperative Psychomotor Behavior: Psychomotor normal Mood: "ok" Affect and affective range: Incongruent with stated mood Thought Process: Circumstantial Thought Content: Paranoid Speech:Normal Suicidal Ideation: Denies Homicidal Ideation: Denies Hallucinations: Denies Delusions:paranoid Impulse Control: Limited Insight and Judgment: Limited insight and fair judgment Memory: Limited Attention: distracted Orientation: a/o x 3 Assessment (1) Unspecified mood Disorder (2) Current Visit: Yes Status: Acute Continue home medications. 1013 Treatment Plan Continue home medications. Start Haldol 5mg po BID and to give IM if patient refuse PO. Risks, benefits and alternatives of medications discussed with the patient, questions answered and consent obtained from patient. PSYCHOTHERAPY: Supportive psychotherapy provided MEDICAL: Per primary team DELIRIUM PRECAUTIONS: Please re-orient patient frequently, keep lights on during the day, and minimize benzodiazepines and opiates as these medications could worsen patient's confusion. CUSTOMER TRAINER: per primary DISPOSITION: Recommend acute psychiatric treatment. Will follow. Thank you for the consult. Please contact with any questions and/or concerns. Case discussed with Dr. Samuel who agrees with current disposition Medications and Allergies Mental Status Exam - Vital signs Last Vital Signs Temp 98.2 F 01/08/22 11:59 Pulse 74 01/08/22 11:59 Resp 18 01/08/22 11:59 BP 124/82 01/08/22 11:59 Pulse Ox 100 01/08/22 11:59
--- NOTE | 2022-01-08 21:17 | Progress Note ---
Assessment and Plan Assessment and plan: 36 YO Female with GERD, MARLINE presents to ED for evaluation. Patient has diminished cognition and is unable to provide history time my evaluation. Patient history taken from EMS staff, ED staff, as well as the patient's parents were made available by telephone for interview. Patient family reports that the patient has experienced abnormal behavior over the past several years with an acute worsening of the aforementioned symptoms over the past 3 to 4 days. Patient has an inability to maintain employment, inability to form lasting relationships with others, tangential thinking, bizarre behavior. Patient family reports that over the past 3 days after being notified that she would no longer be financially supported she has experienced an acute exacerbation of the aforementioned symptoms. 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 Patient was being transported in the family vehicle when she began behaving erratically and trying to jump out of a car while he was in motion. Patient found to have an acute psychotic break suspected secondary to schizophrenia, rhabdomyolysis. Patient admitted to medical floor and initiated on IV fluid resuscitation therapy. Mental health team consulted. [address]. Acute psychosis with history of schizophrenia: Psychiatry consulted, evaluation in progress, medical treatment initiated . She denies having mental health problems. She is refusing to take her medications stating that she gets sick and vomits if she takes her meds. Patient remains calm and he denies suicidal ideation or hallucinations. Initially patient stated that she did not feel safe to get back to her parents place but she now wants to go back to her parents place and is willing to do whatever it takes to go back. She has no complaints. Patient was evaluated by psychiatric service later this afternoon and revoked 1013 and cleared for safe discharge back to her parents place. Mild rhabdomyolysis. Borderline hyperkalemia, 3.4, replenished Borderline free T4 1.5 versus normal 1.4 with a normal TSH Discussed with the nursing staff. History Interval history: Patient is calm and he denies suicidal ideation or hallucinations. She now wants to go back to her parents place and is willing to do whatever it takes to go back. She has no complaints. No acute events reported. Psychiatry following. Hospitalist Physical - Constitutional Vitals: Temp Pulse Resp BP Pulse Ox 98.2 F 70 20 121/76 99 01/08/22 17:33 01/08/22 17:33 01/08/22 17:33 01/08/22 17:33 01/08/22 21:16 General appearance: Present: no acute distress - EENT Eyes: Present: PERRL, EOM intact ENT: clear oral mucosa - Neck Neck: Present: supple - Respiratory Respiratory effort: normal Respiratory: bilateral: CTA - Cardiovascular Rhythm: regular - Extremities Extremities: no ischemia - Abdominal General gastrointestinal: soft, non-tender, non-distended, normal bowel sounds - Integumentary Integumentary: Absent: rash - Psychiatric Psychiatric: cooperative, no agitated - Neurologic Neurologic: no focal deficits, moves all extremities Results - Labs CBC & Chem 7: 01/07/22 05:42 01/07/22 05:42 Labs: Laboratory Last Values WBC 5.6 K/mm3 (4.5-11.0) 01/07/22 05:42 RBC 3.60 M/mm3 (3.65-5.03) L 01/07/22 05:42 Hgb 10.2 gm/dl (10.1-14.3) 01/07/22 05:42 Hct 32.1 % (30.3-42.9) D 01/07/22 05:42 MCV 89 fl (79-97) 01/07/22 05:42 MCH 28 pg (28-32) 01/07/22 05:42 MCHC 32 % (30-34) 01/07/22 05:42 RDW 15.1 % (13.2-15.2) 01/07/22 05:42 Plt Count 149 K/mm3 (140-440) 01/07/22 05:42 Lymph % (Auto) 23.0 % (13.4-35.0) 01/07/22 05:42 [place] % (Auto) 9.4 % (0.0-7.3) H 01/07/22 05:42 Eos % (Auto) 0.3 % (0.0-4.3) 01/07/22 05:42 Baso % (Auto) 0.2 % (0.0-1.8) 01/07/22 05:42 Lymph # (Auto) 1.3 K/mm3 (1.2-5.4) 01/07/22 05:42 [place] # (Auto) 0.5 K/mm3 (0.0-0.8) 01/07/22 05:42 Eos # (Auto) 0.0 K/mm3 (0.0-0.4) 01/07/22 05:42 Baso # (Auto) 0.0 K/mm3 (0.0-0.1) 01/07/22 05:42 Add Manual Diff Complete 01/05/22 14:13 Total Counted 100 01/05/22 14:13 Seg Neutrophils % 67.1 % (40.0-70.0) 01/07/22 05:42 Seg Neuts % (Manual) 80.0 % (40.0-70.0) H 01/05/22 14:13 Band Neutrophils % 0 % 01/05/22 14:13 Lymphocytes % (Manual) 11.0 % (13.4-35.0) L 01/05/22 14:13 Reactive Lymphs % (Man) 0 % 01/05/22 14:13 Monocytes % (Manual) 9.0 % (0.0-7.3) H 01/05/22 14:13 Eosinophils % (Manual) 0 % (0.0-4.3) 01/05/22 14:13 Basophils % (Manual) 0 % (0.0-1.8) 01/05/22 14:13 Metamyelocytes % 0 % 01/05/22 14:13 Myelocytes % 0 % 01/05/22 14:13 Promyelocytes % 0 % 01/05/22 14:13 Blast Cells % 0 % 01/05/22 14:13 Nucleated RBC % Not Reportable 01/05/22 14:13 Seg Neutrophils # 3.7 K/mm3 (1.8-7.7) 01/07/22 05:42 Seg Neutrophils # Man 8.4 K/mm3 (1.8-7.7) H 01/05/22 14:13 Band Neutrophils # 0.0 K/mm3 01/05/22 14:13 Lymphocytes # (Manual) 1.2 K/mm3 (1.2-5.4) 01/05/22 14:13 Abs React Lymphs (Man) 0.0 K/mm3 01/05/22 14:13 Monocytes # (Manual) 0.9 K/mm3 (0.0-0.8) H 01/05/22 14:13 Eosinophils # (Manual) 0.0 K/mm3 (0.0-0.4) 01/05/22 14:13 Basophils # (Manual) 0.0 K/mm3 (0.0-0.1) 01/05/22 14:13 Metamyelocytes # 0.0 K/mm3 01/05/22 14:13 Myelocytes # 0.0 K/mm3 01/05/22 14:13 Promyelocytes # 0.0 K/mm3 01/05/22 14:13 Blast Cells # 0.0 K/mm3 01/05/22 14:13 WBC Morphology Not Reportable 01/05/22 14:13 WBC Morphology TNR 01/05/22 14:13 Hypersegmented Neuts Not Reportable 01/05/22 14:13 Hyposegmented Neuts Not Reportable 01/05/22 14:13 Hypogranular Neuts Not Reportable 01/05/22 14:13 Smudge Cells Not Reportable 01/05/22 14:13 Toxic Granulation Not Reportable 01/05/22 14:13 Toxic Vacuolation Not Reportable 01/05/22 14:13 Dohle Bodies Not Reportable 01/05/22 14:13 Pelger-Huet Anomaly Not Reportable 01/05/22 14:13 Nely Rods Not Reportable 01/05/22 14:13 Platelet Estimate Consistent w auto 01/05/22 14:13 Clumped Platelets Not Reportable 01/05/22 14:13 Plt Clumps, EDTA Not Reportable 01/05/22 14:13 Large Platelets Not Reportable 01/05/22 14:13 Giant Platelets Not Reportable 01/05/22 14:13 Platelet Satelliting Not Reportable 01/05/22 14:13 Plt Morphology Comment Not Reportable 01/05/22 14:13 RBC Morphology Not Reportable 01/05/22 14:13 Dimorphic RBCs Not Reportable 01/05/22 14:13 Polychromasia Not Reportable 01/05/22 14:13 Hypochromasia Not Reportable 01/05/22 14:13 Poikilocytosis Not Reportable 01/05/22 14:13 Anisocytosis Not Reportable 01/05/22 14:13 Microcytosis Not Reportable 01/05/22 14:13 Macrocytosis Not Reportable 01/05/22 14:13 Spherocytes Not Reportable 01/05/22 14:13 Pappenheimer Bodies Not Reportable 01/05/22 14:13 Sickle Cells Not Reportable 01/05/22 14:13 Target Cells Not Reportable 01/05/22 14:13 Tear Drop Cells Not Reportable 01/05/22 14:13 Ovalocytes Not Reportable 01/05/22 14:13 Helmet Cells Not Reportable 01/05/22 14:13 [place] Bodies Not Reportable 01/05/22 14:13 [place] Rings Not Reportable 01/05/22 14:13 [place] Cells Not Reportable 01/05/22 14:13 Bite Cells Not Reportable 01/05/22 14:13 Crenated Cell Not Reportable 01/05/22 14:13 Elliptocytes Few 01/05/22 14:13 Acanthocytes (Spur) Not Reportable 01/05/22 14:13 Rouleaux Not Reportable 01/05/22 14:13 Hemoglobin C Crystals Not Reportable 01/05/22 14:13 Schistocytes Not Reportable 01/05/22 14:13 Malaria parasites Not Reportable 01/05/22 14:13 [place] Bodies Not Reportable 01/05/22 14:13 Hem Pathologist Commnt No 01/05/22 14:13 PT 14.2 Sec. (12.2-14.9) 01/05/22 14:13 INR 0.99 (0.87-1.13) 01/05/22 14:13 APTT 29.0 Sec. (24.2-36.6) 01/05/22 14:13 Sodium 146 mmol/L (137-145) H 01/07/22 05:42 Potassium 3.4 mmol/L (3.6-5.0) L 01/07/22 05:42 Chloride 115.5 mmol/L (98-107) H 01/07/22 05:42 Carbon Dioxide 19 mmol/L (22-30) L 01/07/22 05:42 Anion Gap 15 mmol/L 01/07/22 05:42 BUN 16 mg/dL (7-17) 01/07/22 05:42 Creatinine 1.2 mg/dL (0.6-1.2) 01/07/22 05:42 Estimated GFR > 60 ml/min 01/07/22 05:42 BUN/Creatinine Ratio 13 % 01/07/22 05:42 Glucose 103 mg/dL (65-100) H 01/07/22 05:42 Lactic Acid 1.00 mmol/L (0.7-2.0) 01/05/22 15:14 Calcium 7.7 mg/dL (8.4-10.2) L D 01/07/22 05:42 Magnesium 2.20 mg/dL (1.7-2.3) 01/05/22 14:13 Total Bilirubin 1.00 mg/dL (0.1-1.2) 01/05/22 14:13 AST 33 units/L (5-40) 01/05/22 14:13 ALT 15 units/L (7-56) 01/05/22 14:13 Alkaline Phosphatase 49 units/L (35-129) 01/05/22 14:13 Ammonia 12.0 umol/L (25-60) L 01/05/22 14:13 Total Creatine Kinase 1264 units/L (30-135) H 01/07/22 05:42 Total Protein 8.7 g/dL (6.3-8.2) H 01/05/22 14:13 Albumin 5.1 g/dL (3.9-5) H 01/05/22 14:13 Albumin/Globulin Ratio 1.4 % 01/05/22 14:13 TSH 1.310 mlU/mL (0.270-4.200) 01/05/22 14:13 Free T4 1.54 ng/dL (0.76-1.46) H 01/05/22 14:13 HCG, Qual Negative (Negative) 01/05/22 14:13 Urine Color Yellow (Yellow) 01/05/22 Unknown Urine Turbidity Clear (Clear) 01/05/22 Unknown Urine pH 5.0 (5.0-7.0) 01/05/22 Unknown Ur Specific [place] 1.027 (1.003-1.030) 01/05/22 Unknown Urine Protein 100 mg/dl mg/dL (Negative) 01/05/22 Unknown Urine Glucose (UA) Neg mg/dL (Negative) 01/05/22 Unknown Urine Ketones 80 mg/dL (Negative) 01/05/22 Unknown Urine Blood Neg (Negative) 01/05/22 Unknown Urine Nitrite Neg (Negative) 01/05/22 Unknown Urine Bilirubin Neg (Negative) 01/05/22 Unknown Urine Urobilinogen 2.0 mg/dL (<2.0) 01/05/22 Unknown Ur Leukocyte Esterase Neg (Negative) 01/05/22 Unknown Urine WBC (Auto) 1.0 /HPF (0.0-6.0) 01/05/22 Unknown Urine RBC (Auto) 8.0 /HPF (0.0-6.0) 01/05/22 Unknown U Epithel Cells (Auto) 13.0 /HPF (0-13.0) 01/05/22 Unknown Urine Mucus 2+ /HPF 01/05/22 Unknown CSF Appearance Clear 01/05/22 Unknown CSF Color Colorless 01/05/22 Unknown CSF WBC 0 /mm3 (1-10) 01/05/22 Unknown CSF RBC 6619845 /mm3 (0-0) 01/05/22 Unknown CSF Seg Neutrophils 0 % (0-6) 01/05/22 Unknown CSF Lymphocytes % 0 % (40-80) 01/05/22 Unknown CSF Reactive Lymphs 0 % 01/05/22 Unknown CSF Monocytes % 0 % (15-45) 01/05/22 Unknown CSF Eosinophils % 0 % 01/05/22 Unknown CSF Basophils 0 % 01/05/22 Unknown CSF Comment No cells seen 01/05/22 Unknown CSF Pathologist Review C 01/05/22 Unknown CSF Glucose 73 mg/dL 01/05/22 Unknown CSF Total Protein 32 mg/dL 01/05/22 Unknown Salicylates < 0.3 mg/dL (2.8-20.0) L 01/05/22 14:13 Urine Opiates Screen Negative 01/05/22 Unknown Urine Methadone Screen Negative 01/05/22 Unknown Acetaminophen 5.0 ug/mL (10.0-30.0) L 01/05/22 14:13 Ur Barbiturates Screen Negative 01/05/22 Unknown Ur Phencyclidine Scrn Negative 01/05/22 Unknown Ur Amphetamines Screen Negative 01/05/22 Unknown U Benzodiazepines Scrn Positive 01/05/22 Unknown Urine Cocaine Screen Negative 01/05/22 Unknown U Marijuana (THC) Screen Negative 01/05/22 Unknown Drugs of Abuse Note Disclamer 01/05/22 Unknown Plasma/Serum Alcohol < 0.01 % (0-0.07) 01/05/22 14:13 Microbiology: Microbiology 01/05/22 15:40 Peripheral/Venous Blood Culture - Preliminary NO GROWTH AFTER 72 HOURS 01/05/22 15:14 Peripheral/Venous Blood Culture - Preliminary NO GROWTH AFTER 72 HOURS 01/05/22 Unknown Cerebral Spinal Fluid CSF Culture - Final 01/05/22 Unknown Cerebral Spinal Fluid Cryptococcal Antigen - Final [place]/IV: Voiding Method Toilet Active Medications - Current Medications Current Medications: Generic Name Dose Route Start Last Admin Trade Name Freq PRN Reason Stop Dose Admin Acetaminophen 650 mg 01/05/22 17:30 Acetaminophen 325 Mg Tab PO Q4H PRN Pain MILD(1-3)/Fever >100.5/RAVI Albuterol 2.5 mg 01/05/22 17:30 Albuterol 2.5 Mg/3 Ml Nebu IH Q4HRT PRN Shortness Of Breath Haloperidol Lactate 5 mg 01/06/22 16:00 01/08/22 09:32 Haloperidol Lactate 5 Mg/1 Ml Inj IM Not Given BID GERARD Sodium Chloride 1,000 mls @ 150 mls/hr 01/05/22 17:30 01/07/22 01:41 Nacl 0.9% 1000 Ml IV 150 mls/hr DIRECT GERARD Administration Lorazepam 2 mg 01/05/22 13:34 01/05/22 14:11 Lorazepam 2 Mg/Ml Vial IM 2 mg Q4HR PRN Administration Agitation Ondansetron HCl 4 mg 01/05/22 17:30 Ondansetron 4 Mg/2 Ml Inj IV Q8H PRN Nausea And Vomiting Sodium Chloride 10 ml 01/05/22 22:00 01/08/22 09:32 Sodium Chloride 0.9% 10 Ml Flush Syringe IV Not Given BID GERARD Sodium Chloride 10 ml 01/05/22 17:30 Sodium Chloride 0.9% 10 Ml Flush Syringe IV PRN PRN LINE FLUSH Nutrition/Malnutrition Assess - Dietary Evaluation Nutrition/Malnutrition Findings: Nutrition Notes Start: 01/06/22 11:46 Freq: Status: Active Protocol: Document 01/06/22 11:46 JOSEPH (Rec: 01/06/22 12:11 JOSEPH [id number]) Nutrition Notes 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 Current Diet Regular Diet (since D 01/05). Labs/Tests 01/05: Cl 111.3, CO2 19, BUN 21, Glu 101. Pertinent Medications 01/06: Nutritionally unremarkable. Height 5 ft 7.5 in Weight 61 kg [place] Body Weight (kg) 62.50 BMI 20.7 Intake Prior to Admission Poor Weight change and time frame Pt states being unsure if loss body weight recently. Weight Status Appropriate Subjective/Other Information RD consult for risk of malnutrition assessment. Pt's PO intake of meals was Fair (50%), according to ADL notes. Pt shows no signs of concern for risk of malnitrition at the time, according to Physical Assessment History notes. Percent of energy/protein needs met: Prescribed Regular Diet provides for energy/protein needs (2,289 Kcal/89 g) during LOS. Burn Absent Trauma Absent GI Symptoms None Food Allergy No Skin Integrity/Comment Clear, warm dry. Current % PO Fair (50-74%) Minimum of two criteria No #1 Nutrition Diagnosis No nutrition diagnosis at this time Is patient on ventilator? No Is Patient Ambulatory and/or Out of Bed Yes REE-([place]. Jeor-ambulatory/OOB) [ 1749.228 [id number]] Calculation Used for Recommendations [place] or Additional Notes Protein: 0.8-1 g/Kg; 49-61 g/ day. Fluids: 1 ml/Kcal, or as per MD. Nutrition Intervention Change Diet Order: Continue Regular Diet. Goal #1 Maintain body weight within +/ -3% of admission body weight during LOS. Follow-Up By: 01/13/22 Additional Comments Continue monitoring food tolerance, %PO intake of meals , and BM.
[2022-01-09 04:17] VITALS: BP 113/78
--- NOTE | 2022-01-09 08:42 | Discharge Summary ---
Providers - Providers Date of Admission: 01/05/22 17:30 Date of discharge: 01/09/22 Attending physician: AMAIRANI ANDERSON MD 01/05/22 13:33 Consult to Mental Health [CONS] Stat Reason For Exam: psychosis 01/05/22 15:17 Consult to Physician [CONS] Urgent Comment: Consulting Provider: VIJAY RAMOS Physician Instructions: Reason For Exam: thyroid storm [facility] Condition: Stable Hospital course: 36 YO Female with GERD, MARLINE presents to ED for evaluation. Patient has diminished cognition and is unable to provide history time my evaluation. Patient history taken from EMS staff, ED staff, as well as the patient's parents were made available by telephone for interview. Patient family reports that the patient has experienced abnormal behavior over the past several years with an acute worsening of the aforementioned symptoms over the past 3 to 4 days. Patient has an inability to maintain employment, inability to form lasting relationships with others, tangential thinking, bizarre behavior. Patient family reports that over the past 3 days after being notified that she would no longer be financially supported she has experienced an acute exacerbation of the aforementioned symptoms. 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 Patient was being transported in the family vehicle when she began behaving erratically and trying to jump out of a car while he was in motion. Patient found to have an acute psychotic break suspected secondary to schizophrenia, rhabdomyolysis. Patient admitted to medical floor and initiated on IV fluid resuscitation therapy. Mental health team consulted. [address] Acute psychosis with history of schizophrenia: Psychiatry consulted, evaluation in progress, medical treatment initiated . She denies having mental health problems. She is refusing to take her medications stating that she gets sick and vomits if she takes her meds. Patient remains calm and he denies suicidal ideation or hallucinations. Initially patient stated that she did not feel safe to get back to her parents place but she now wants to go back to her parents place and is willing to do whatever it takes to go back. She has no complaints. Patient was evaluated by psychiatric service later this afternoon and revoked 1013 and cleared for safe discharge back to her parents place. Patient will need to have an outpatient follow-up with psychiatry. Mild rhabdomyolysis. Borderline hyperkalemia, 3.4, replenished Borderline free T4 1.5 versus normal 1.4 with a normal TSH Disposition: 01 HOME / SELF CARE / HOMELESS Final Discharge Diagnosis (Prints w/discharge instructions): Schizophrenia. Mild rhabdomyolysis. Mild hypokalemia Exam - Constitutional Vitals: Temp Pulse Resp BP Pulse Ox 97.8 F 72 18 113/78 98 01/09/22 04:01/09/22 04:16 01/09/22 04:01/09/22 04:01/09/22 07:08 General appearance: Present: no acute distress - EENT Eyes: Present: PERRL, EOM intact ENT: clear oral mucosa - Neck Neck: Present: supple - Respiratory Respiratory effort: normal Respiratory: bilateral: CTA - Cardiovascular Rhythm: regular - Extremities Extremities: No edema - Abdominal General gastrointestinal: Present: soft, non-tender, non-distended, normal bowel sounds - Integumentary Integumentary: Absent: rash - Musculoskeletal Musculoskeletal: strength equal bilaterally - Psychiatric Psychiatric: cooperative, no agitated - Neurologic Neurologic: no focal deficits, moves all extremities Plan Activity: no restrictions Diet: regular Additional Instructions: You need to have a follow-up visit with a psychiatrist in 1 week. Follow up with: JOSHUA AVILA MD [Primary Care Provider] - 3-5 Days Prescriptions: LORazepam [Ativan] 1 mg PO QHS #10 tab risperiDONE [RisperDAL] 2 mg PO QHS #30
[2022-01-09] MEDS ORDERED: POTASSIUM CHLORIDE ER 20 MEQ TAB PO SCH (09:00)
[2022-01-09] MEDS: HALOPERIDOL LACTATE 5 MG/1 ML INJ IM SCH (09:01)
== END 2022-01-09 13:07 | disposition home or self-care (01) | DRG 558 ==
LOC: ED 12:53 → 3A 17:30
PROVIDERS: ADMIT Internal Medicine; ATTEND Internal Medicine
PROC: 009U3ZX Drainage of Spinal Canal, Percutaneous Approach, Diagnostic (ICD-10-PCS; principal; 2022-01-05)
DX: M62.82 Rhabdomyolysis (principal); F20.0 Paranoid schizophrenia; G93.40 Encephalopathy, unspecified; K21.9 Gastro-esophageal reflux disease without esophagitis; R50.9 Fever, unspecified; E87.6 Hypokalemia
CPT/HCPCS: 36415; 70450; 71045; 74176; 80048; 80053; 80307; 80320; 81001; 82140; 82550; 82947; 83735; 84160; 84439; 84443; 84703; 85007; 85025; 85610; 85730; 86403; 87040; 87116; 87498; 87799; 89051; 93005; 93010; 94760; G0378; J3490; Q0162; G0480; J0133; J0696; J1100; J1200; J1630; J2060; J2250; J3370; J7030